=== PATIENT | male | born 1995 | race Caucasian/White ===

== ENCOUNTER 2023-07-27 10:09 | Emergency (ER) | payer OTHER ==
[~2023-07-27] VITALS: Ht 167.6 cm; Wt 81.6 kg
[2023-07-27 10:32] VITALS: BP 149/90; PULSE 64; RESP 18; TEMP 97; O2SAT 98
[2023-07-27] MEDS ORDERED: KETOROLAC 30 MG/ML VIAL IM ONE (11:45)
[2023-07-27 12:21] LABS: BASOPHILS # (AUTO) 0.1 K/uL (0.00-0.22); BASOPHILS % (AUTO) 0.6 % (0.0-2.0); EOSINOPHILS # (AUTO) 0.1 K/uL (0-0.4); EOSINOPHILS % (AUTO) 1.1 % (0.0-4.0); HEMATOCRIT 46.4 % (36-52); HEMOGLOBIN 15.7 g/dL (12.0-18.0); LYMPHOCYTES # (AUTO) 1.9 K/uL (2.0-11.5); LYMPHOCYTES % (AUTO) 17.8 % (20.5-51.1); MEAN CORPUSCULAR HEMOGLOBIN 29 pg (27-31); MEAN CORPUSCULAR HGB CONC 34 g/dL (33-37); MEAN CORPUSCULAR VOLUME 85.6 fL (80-94); MONOCYTES # (AUTO) 1.1 K/uL (0.8-1.0); MONOCYTES % (AUTO) 10.4 % (1.7-9.3); NEUTROPHILS # (AUTO) 7.4 K/uL (1.8-7.7); NEUTROPHILS % (AUTO) 70.1 % (42.2-75.2); PLATELET COUNT (AUTO) 258 K/uL (140-450); RED BLOOD CELL COUNT(AUTO) 5.42 MIL/uL (4.20-6.10); RED CELL DISTRIBUTION WIDTH 12.8 % (11.6-13.7); WHITE BLOOD COUNT (AUTO) 10.5 K/uL (4.8-10.8)
[2023-07-27 12:34] LABS: ALANINE AMINOTRANSFERASE 149 U/L (12-78); ALBUMIN 4.2 g/dL (3.4-5.0); ALKALINE PHOSPHATASE 82 U/L (50-136); ANION GAP 9.7 (8-16); ASPARTATE AMINOTRANSFERASE 46 U/L (15-37); CARBON DIOXIDE 30.8 mmol/L (21-32); CHLORIDE 103 mmol/L (98-107); CREATINE KINASE, TOTAL 459 U/L (39-308); CREATININE 0.9 mg/dL (0.6-1.3); GFR ARICAN-AMERICAN 130 mL/min (>90); GFR NON ARICAN-AMERICAN 108 mL/min (>90); GLUCOSE 101 mg/dL (74-106); POTASSIUM 4.5 mmol/L (3.5-5.1); SODIUM SERUM 139 mmol/L (136-145); TOTAL PROTEIN, SERUM 7.7 g/dL (6.4-8.2); UREA NITROGEN, BLOOD 13 mg/dL (7-18)
[2023-07-27] MEDS ORDERED: IBUP-2213 PO (12:53)
== END 2023-07-27 12:59 | disposition home or self-care (01) ==
LOC: MED 10:09
DX: M25.551 Pain in right hip (principal); M79.661 Pain in right lower leg; M79.662 Pain in left lower leg; Z79.899 Other long term (current) drug therapy
CPT/HCPCS: 36415; 73502; 80053; 82550; 82553; 85025; 96372; 99284; J1885; Q0092